=== PATIENT | male | born 2000 | race Caucasian/White ===

== ENCOUNTER 2024-04-28 10:05 | Emergency (ER) | payer OTHER, SELFPAY ==
[2024-04-28 10:14] VITALS: BP 133/70; PULSE 84; RESP 16; TEMP 36.7; O2SAT 100
--- NOTE | 2024-04-28 10:27 | ED.URI ---
HPI - URI/Sore Throat General Chief Complaint: Upper Respiratory Infection Stated Complaint: Sore Throat Time Seen by Provider: 04/28/24 10:25 Source: patient, RN notes reviewed and old records reviewed Mode of arrival: ambulatory Limitations: no limitations History of Present Illness HPI Narrative: 23 year old male presents to [facility] care with complaints of sore throat since yesterday, some fatigue with no fever noted. Patient reports that he took some NyQuil last night.Patient recently traveled from [place] from business trip and he is suppose to fly out this Sunday to [place] and is concerned of his symptoms. Patient reports no body aches,ear pain or headache. MD elicited complaint: sore throat Onset (ago): day(s) (day 2 of symptoms) Consistency: constant Pain scale (0-10): 5 Able to tolerate fluids by mouth: Yes Treatments prior to arrival: other (NyQuil) Related Data Allergies Allergy/AdvReac Type Severity Reaction Status Date / Time No Known Allergies Allergy Verified 04/28/24 10:19 Review of Systems Review of Systems: CONSTITUTIONAL: Denies malaise, chills, sweats, or fever.reports fatigue EYES: Denies visual changes, redness, or discharge. ENT: Reports no rhinorrhea, congestion, sinus pain,no otalgia and positive for sore throat. CARDIOVASCULAR: Denies chest pain, palpitations, or edema. RESPIRATORY: Reports no cough.? Denies dyspnea. GASTROINTESTINAL: Denies abdominal pain, nausea, vomiting, diarrhea SKIN: Denies rash or itching. MUSCULOSKELETAL: Denies myalgia. NEUROLOGIC: Denies headache. All systems reviewed & are unremarkable except as noted in HPI and below PMFSH Social History Social History (Updated 04/29/24 @ 08:53 by Edda Smith NP) Smoking status: Current some day smoker Tobacco type: e-cigarettes/vaping Alcohol intake: current Alcohol use details: social Substance use: never Gender identity (if verbalized by the patient): Male Comments At time of signature, agree with nursing past medical, surgical, social and family history. There is no relevant family history pertinent to the presenting complaint Exam Narrative: GENERAL: Well-appearing, well-nourished, and in no acute distress. HEAD: Normocephalic EYES: PERRLA, conjunctivae clear ENT: Nares clear, turbinates edematous and erythematous, clear discharge. Mucous membranes moist. TM pearly arias with dull light reflex bilaterally; no tragal tenderness. Oropharynx erythematous without lesions. Tonsils red mildly enlarged and without exudate, no drooling, no hoarseness, no trismus, uvula midline, reports soreness to throat NECK: Supple. No lymphadenopathy CHEST: Clear to auscultation, breath sounds equal. No wheezing, rhonchi, rales, or stridor. No respiratory distress, speaks in full sentences.SAO2 100% on room air HEART: Regular rate and rhythm. No murmur heard. SKIN: Warm, dry, no rash. NEURO: Alert and oriented x3. PSYCH: Normal mood and affect Course Course Emergency Course: Patient is aware of diagnosis, understands and agrees to treatment plan.? Anticipatory guidance given.? Patient agrees to follow-up as directed and is aware of reasons to seek care at the emergency department. Portions of this record may have been created with voice recognition software Level of Care: Express Care Visit Vital Signs Vital signs: Vital Signs Temperature 36.7 C 04/28/24 10:14 Pulse Rate 84 04/28/24 10:14 Respiratory Rate 16 04/28/24 10:14 Blood Pressure 133/70 04/28/24 10:14 Pulse Oximetry 100 04/28/24 10:14 Oxygen Delivery Room Air 04/28/24 10:14 Temperature 36.7 C 04/28/24 10:14 Pulse Rate 84 04/28/24 10:14 Respiratory Rate 16 04/28/24 10:14 Blood Pressure 133/70 04/28/24 10:14 Pulse Oximetry 100 04/28/24 10:14 Oxygen Delivery Room Air 04/28/24 10:14 Reviewed MDM - URI/Sore Throat MDM Narrative Medical decision making narrative: Dif
[2024-04-28 10:41] LABS: EDCOVIDSCREEN Negative (Negative); EDINFLUASCREEN Negative (Negative); EDINFLUBSCREEN Negative (Negative); EDSTREPNEGPOS1 Negative (Negative)
== END 2024-04-28 10:55 | disposition home or self-care (01) ==
PROVIDERS: Emergency Provider Registered Nurse
DX: J02.9 Acute pharyngitis, unspecified (principal); F17.290 Nicotine dependence, other tobacco product, uncomplicated; Z20.822 Contact with and (suspected) exposure to COVID-19
CPT/HCPCS: 87081; 87426; 87804; 87880; 99213; G0463